=== PATIENT | female | born 1965 | race Caucasian/White ===

== ENCOUNTER 2018-07-07 16:21 | Emergency (ER) | payer OTHER ==
[~2018-07-07] VITALS: Ht 149.9 cm; Wt 73.0 kg
[2018-07-07 16:40] VITALS: BP 133/65
== END 2018-07-07 17:42 | disposition home or self-care (01) ==
LOC: ED 17:05
DX: S83.92XA Sprain of unspecified site of left knee, initial encounter (principal); S43.422A Sprain of left rotator cuff capsule, initial encounter; E11.9 Type 2 diabetes mellitus without complications; V49.49XA Driver injured in collision with other motor vehicles in traffic accident, initial encounter; Y93.89 Activity, other specified; Y92.89 Other specified places as the place of occurrence of the external cause; Y99.8 Other external cause status
CPT/HCPCS: 99284

== ENCOUNTER 2019-10-20 15:32 | Emergency (ER) | payer BC ==
[~2019-10-20] VITALS: Ht 149.9 cm; Wt 73.8 kg
[2019-10-20] MEDS ORDERED: ASPIRIN 81 MG TABLET CHEW ONE ×2 (15:41→16:57)
[2019-10-20] MEDS ORDERED: ASPIRIN 81 MG TABLET CHEW PO ONE (16:00)
[2019-10-20 16:07] LABS: BASOPHILS % (AUTO) 1 % (0-1); EOSINOPHILS # (AUTO) 0.11 x10^3/uL (0-0.4); EOSINOPHILS % (AUTO) 1 % (1-7); LYMPHOCYTES # (AUTO) 2.99 x10^3/uL (1-3.4); LYMPHOCYTES % (AUTO) 38 % (22-44); MD NO; MEAN CORPUSCULAR HGB CONC 33.7 g/dL (32.4-35.8); MEAN CORPUSCULAR VOLUME 91.9 fL (80-100); MEAN PLATELET VOLUME 8.9 fL (7.4-10.4); MONOCYTES # (AUTO) 0.37 x10^3/uL (0.2-0.8); MONOCYTES % (AUTO) 5 % (2-9); NEUTROPHILS # (AUTO) 4.25 x10^3/uL (1.8-6.8); NEUTROPHILS % (AUTO) 54 % (42-75); PLATELET COUNT 382 x10^3/uL (130-400); RED BLOOD COUNT 4.41 x10^6/uL (3.82-5.3); RED CELL DISTRIBUTION WIDTH 12.8 % (9.6-15.2)
[2019-10-20 16:16] LABS: ALBUMIN 4.1 g/dL (3.4-5.0); ANION GAP 6 mmol/L (5-15); CALCIUM 9.2 mg/dL (8.5-10.1); CHLORIDE 111 mmol/L (98-107)
[2019-10-20 16:21] LABS: TROPONIN I < 0.015 ng/mL (0.000-0.045)
--- NOTE | 2019-10-20 17:05 | NUR ---
PT WITH C/O CP INTERMITTANCE X 4 DAYS. PER PT SHE IS CP FREE CURRENTLY. PT TO ALL MONITOR EQUIPMENT. PLACED FOR RECHECK
[2019-10-20 18:33] VITALS: BP 163/83
== END 2019-10-20 18:53 | disposition home or self-care (01) ==
LOC: ED 18:00
DX: R07.89 Other chest pain (principal); I10 Essential (primary) hypertension; E11.9 Type 2 diabetes mellitus without complications; E78.00 Pure hypercholesterolemia, unspecified
CPT/HCPCS: 36415; 71045; 80048; 82040; 84484; 85025; 85379; 93005; 99284

== ENCOUNTER 2020-05-22 11:06 | Inpatient (IN) | payer BC ==
[~2020-05-22] VITALS: Ht 157.5 cm; Wt 91.0 kg
--- NOTE | 2020-05-22 12:34 | NUR ---
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
[2020-05-22] MEDS ORDERED: ONDANSETRON 2MG/ML, 2ML IVPush ONE ×2 (13:30→18:30)
[2020-05-22] MEDS ORDERED: SODIUM CHLORIDE FLUSH 10ML SYR IVF ONE (13:30)
[2020-05-22] MEDS ORDERED: SODIUM CHLORIDE 0.9% 1,000ML IVBOLUS ONE (13:30)
[2020-05-22] MEDS ORDERED: ONDANSETRON 2MG/ML, 2ML ONE ×4 (13:37→21:05)
[2020-05-22] MEDS ORDERED: HYDROmorphone 1 MG/ML, 1ML INJ ONE ×2 (13:37→15:11)
[2020-05-22 13:46] LABS: MICROSCOPIC INDICATED
[2020-05-22 13:56] LABS: BASOPHILS % (AUTO) 0 % (0-1); EOSINOPHILS # (AUTO) 0.01 x10^3/uL (0-0.4); EOSINOPHILS % (AUTO) 0 % (1-7); LYMPHOCYTES # (AUTO) 1.47 x10^3/uL (1-3.4); LYMPHOCYTES % (AUTO) 9 % (22-44); MD NO; MEAN CORPUSCULAR HEMOGLOBIN 30.5 pg (27.0-34.8); MEAN CORPUSCULAR HGB CONC 33.6 g/dL (32.4-35.8); MEAN CORPUSCULAR VOLUME 90.7 fL (80-100); MEAN PLATELET VOLUME 9.1 fL (7.4-10.4); MONOCYTES # (AUTO) 0.35 x10^3/uL (0.2-0.8); MONOCYTES % (AUTO) 2 % (2-9); NEUTROPHILS # (AUTO) 14.14 x10^3/uL (1.8-6.8); NEUTROPHILS % (AUTO) 89 % (42-75); PLATELET COUNT 378 x10^3/uL (130-400); RED BLOOD COUNT 4.47 x10^6/uL (3.82-5.3); RED CELL DISTRIBUTION WIDTH 13.3 % (9.6-15.2)
[2020-05-22 14:02] LABS: CHLORIDE 109 mmol/L (98-107)
[2020-05-22] MEDS: HYDROmorphone 2 MG/ML, 1ML IVPush PRN ×2 (14:07→15:17)
--- NOTE | 2020-05-22 14:08 | NUR ---
BREAK RN: PT AMBULATED TO BATHROOM. VS STABLE. FAMILY AT BEDSIDE. PT MEDICATED FOR PAIN 07/01. US DONE. PULSE OX ON. NO ACUTE DISTRESS NOTED. WILL CONTINUE TO MONITOR WHILE PRIMARY RN IS ON BREAK.
[2020-05-22 14:10] LABS: ALANINE AMINOTRANSFERASE 75 U/L (12-78); ALBUMIN 4.1 g/dL (3.4-5.0); ALKALINE PHOSPHATASE 146 U/L (45-117); ANION GAP 8 mmol/L (5-15); BILIRUBIN,TOTAL 0.4 mg/dL (0.2-1.0); CREATININE 0.69 mg/dL (0.55-1.02); TOTAL PROTEIN 8.2 g/dL (6.4-8.2)
--- NOTE | 2020-05-22 14:57 | NUR ---
Nicole RN note: Pt ambulatory to bathroom and back to bed without difficulty. Pt positioned for comfort in bed, denies other needs. Continuous oxygen and BP monitors reapplied, all safety measures observed.
--- NOTE | 2020-05-22 15:20 | NUR ---
PT MEDICATED FOR PAIN PER EMAR. PT STATED PAIN HAS STARTED TO COME BACK. SON AT BEDSIDE. WILL CONTINUE TO MONITOR.
--- NOTE | 2020-05-22 15:56 | NUR ---
PT RESTING CALMLY IN BED, EYES CLOSED, WITH FAMILY AT BEDSIDE. NO COMPLAINTS AT THIS TIME. PT AWAITING CT
--- NOTE | 2020-05-22 16:20 | NUR ---
PT STILL HAS NOT GONE FOR CT. CONTACTED CT, STATED TECH IS ON THE WAY TO PICK PT UP NOW.
--- NOTE | 2020-05-22 16:40 | NUR ---
PT GOING TO CT AT THIS TIME.
[2020-05-22] MEDS ORDERED: CEFTRIAXONE PMX 1GM/50ML 50 ML IVPB ONE (17:00)
[2020-05-22] MEDS ORDERED: CEFTRIAXONE PMX 1GM/50ML 50 ML ONE (17:17)
[2020-05-22] MEDS ORDERED: IBUP200T64 PO (17:43)
--- NOTE | 2020-05-22 18:08 | NUR ---
REPORT TO GRANT KINSEY.
--- NOTE | 2020-05-22 18:21 | NUR ---
late entry::PT DAUGHTER UPSET THAT THEY ARE HAVING TO WAIT IN THE ER AND FEEL THEY ARE NOT GETTING ANY ANSWERS TO WHAT IS GOING ON. PT AND DAUGHTER WERE INFORMED EARLIER THAT PT WOULD BE ADMITTED, AND ROOM WAS REQUESTED, WAS UNKNOWN WHEN ROOM WOULD BE GIVEN AT THAT TIME. PT DAUGHTER UNHAPPY WITH THIS. WAS ABLE TO RECIEVE SURGICAL PLAN FROM FLOOR NURSEDURING REPORT AND SURGICAL FLOOR'S CURRENT VISITORS POLICY. UPDATED FAMILY MEMBER AND PT WITH THIS INFO. PT DAUGHTER WANTING TO KNOW HOW LONG PT WILL BE IN THE HOSPITAL AND WHEN PT CAN EAT LAST MEAL WAS, PER DAUGHTER, AN 0800 CUP OF COFFEE. PT DAUGHTER INFORMED THAT PT IS NPO AT THIS TIME BUT DIET AND LENGTH OF STAY WILL BE DETERMINED BY THE HOSPITALIST AND SURGEON AFTER SURGERY. PT WAS ACTIVELY VOMITING, PT MEDICATED FOR VOMITING PER EMAR AND PT UNHOOKED FROM VITALS MACHINE AND ASSISTED TO BATHROOM BY HER DAUGHTER. WILL CONTINUE TO MONITOR.
[2020-05-22] MEDS: SODIUM CHLORIDE 0.9% 1,000 ML IV SCH ×2 (18:39→22:39)
--- NOTE | 2020-05-22 18:47 | NUR ---
PT CLOTHING AND JEWELRY REMOVED. OR TECH HERE TO PICK PT UP.
[2020-05-22] MEDS ORDERED: MIDAZOLAM 1 MG/ML, 2ML ONE (18:52)
[2020-05-22] MEDS ORDERED: FENTANYL PF 250 MCG/5ML ONE (18:52)
[2020-05-22] MEDS ORDERED: PHARMACY MAY ADJ FOR RENAL FX MC SCH (19:00)
[2020-05-22] MEDS ORDERED: HYDROmorphone 2 MG/ML, 1ML IV PRN (19:00)
[2020-05-22] MEDS ORDERED: morphine SULFATE 10 MG/ML, 1ML IV PRN (19:00)
[2020-05-22] MEDS ORDERED: SODIUM CHLORIDE 0.9% 1,000ML IV ONE (19:00)
[2020-05-22] MEDS ORDERED: ONDANSETRON 2MG/ML, 2ML IV PRN (19:00)
[2020-05-22] MEDS ORDERED: CEFTRIAXONE PMX 1GM/50ML 50 ML IVPB SCH (19:00)
[2020-05-22] MEDS ORDERED: DOCUSATE 100 MG CAPSULE PO PRN (19:00)
[2020-05-22] MEDS ORDERED: ZOLPIDEM 5MG TABLET PO PRN (19:00)
[2020-05-22] MEDS ORDERED: PHENYLEPHRINE 10 MG/ML ONE (19:15)
[2020-05-22] MEDS ORDERED: DEXAMETHASONE 4 MG/ML, 1ML ONE (19:15)
[2020-05-22] MEDS ORDERED: PROPOFOL 10 MG/ML, 100ML IV ONE (19:15)
[2020-05-22] MEDS ORDERED: GLYCOPYRROLATE 0.2MG/1ML, 5ML ONE (19:15)
[2020-05-22] MEDS ORDERED: NEOSTIGMINE 1 MG/ML, 10ML ONE (19:15)
[2020-05-22] MEDS ORDERED: ROCURONIUM 10 MG/ML,10ML ONE (19:15)
[2020-05-22] MEDS ORDERED: POTASSIUM CHLORIDE 20 MEQ TAB.ER.PRT PO ONE (19:30)
[2020-05-22] MEDS ORDERED: hydrALAzine 20 MG/ML, 1ML IV PRN (19:30)
[2020-05-22] MEDS ORDERED: LABETALOL 5MG/ML, 20ML IV PRN (19:30)
[2020-05-22] MEDS ORDERED: morphine SULFATE 10 MG/ML, 1ML IVPush PRN (19:30)
[2020-05-22] MEDS ORDERED: HYDROmorphone 1 MG/ML, 1ML INJ IVPush PRN (19:30)
[2020-05-22] MEDS ORDERED: OXYcodone 5 MG/5 ML ORAL.SOL UDC PO PRN (19:30)
[2020-05-22] MEDS ORDERED: PROMETHAZINE 25 MG/ML, 1ML IVPush PRN ×2 (19:30→21:30)
[2020-05-22] MEDS ORDERED: MEPERIDINE/PF 25MG/0.5ML IVPush PRN (19:30)
[2020-05-22] MEDS ORDERED: HALOPERIDOL 5 MG/ML IV PRN (19:30)
[2020-05-22] MEDS ORDERED: FENTANYL PF 100 MCG/2ML IV PRN (19:30)
[2020-05-22] MEDS ORDERED: SUGAMMADEX 200 MG/2 ML IVPush ONE (19:43)
[2020-05-22 21:24] VITALS: BP 133/81
[2020-05-22] MEDS ORDERED: ONDANSETRON 2MG/ML, 2ML IVPush PRN (21:30)
[2020-05-22] MEDS: HEPARIN 5,000 UNITS/ML, 1ML SQ SCH (22:55)
[2020-05-23 00:59] VITALS: BP 126/71
[2020-05-23] MEDS: SODIUM CHLORIDE 0.9% 1,000 ML IV SCH ×6 (02:39→20:40)
[2020-05-23] MEDS: ACETAMINOPHEN 325 MG TABLET PO PRN ×3 (03:15→14:08)
[2020-05-23 04:45] VITALS: BP 130/77
[2020-05-23 05:41] LABS: BASOPHILS # (AUTO) 0.01 x10^3/uL (0-0.1); BASOPHILS % (AUTO) 0 % (0-1); EOSINOPHILS % (AUTO) 0 % (1-7); LYMPHOCYTES # (AUTO) 1.29 x10^3/uL (1-3.4); LYMPHOCYTES % (AUTO) 9 % (22-44); MD NO; MEAN CORPUSCULAR HEMOGLOBIN 30.8 pg (27.0-34.8); MEAN CORPUSCULAR HGB CONC 33.3 g/dL (32.4-35.8); MEAN CORPUSCULAR VOLUME 92.3 fL (80-100); MEAN PLATELET VOLUME 9.4 fL (7.4-10.4); MONOCYTES # (AUTO) 0.05 x10^3/uL (0.2-0.8); MONOCYTES % (AUTO) 0 % (2-9); NEUTROPHILS # (AUTO) 12.87 x10^3/uL (1.8-6.8); NEUTROPHILS % (AUTO) 91 % (42-75); PLATELET COUNT 368 x10^3/uL (130-400); RED BLOOD COUNT 4.36 x10^6/uL (3.82-5.3); RED CELL DISTRIBUTION WIDTH 13.4 % (9.6-15.2)
[2020-05-23 05:50] LABS: ANION GAP 8 mmol/L (5-15); CALCIUM 9.6 mg/dL (8.5-10.1); CHLORIDE 107 mmol/L (98-107); CREATININE 0.72 mg/dL (0.55-1.02)
[2020-05-23] MEDS: HEPARIN 5,000 UNITS/ML, 1ML SQ SCH ×3 (06:35→23:28)
[2020-05-23 07:10] VITALS: BP 132/79
[2020-05-23] MEDS: PHENAZOPYRIDINE 200 MG TABLET PO SCH ×3 (12:10→20:27)
[2020-05-23 13:10] VITALS: BP 121/74
[2020-05-23 19:18] VITALS: BP 123/73
[2020-05-24 00:38] VITALS: BP 124/67
[2020-05-24] MEDS: SODIUM CHLORIDE 0.9% 1,000 ML IV SCH ×4 (01:11→14:39)
[2020-05-24 05:55] LABS: BASOPHILS # (AUTO) 0.03 x10^3/uL (0-0.1); BASOPHILS % (AUTO) 0 % (0-1); EOSINOPHILS % (AUTO) 0 % (1-7); LYMPHOCYTES # (AUTO) 2.99 x10^3/uL (1-3.4); LYMPHOCYTES % (AUTO) 19 % (22-44); MD NO; MEAN CORPUSCULAR HEMOGLOBIN 30.4 pg (27.0-34.8); MEAN CORPUSCULAR HGB CONC 32.4 g/dL (32.4-35.8); MEAN CORPUSCULAR VOLUME 93.7 fL (80-100); MEAN PLATELET VOLUME 8.9 fL (7.4-10.4); MONOCYTES # (AUTO) 0.64 x10^3/uL (0.2-0.8); MONOCYTES % (AUTO) 4 % (2-9); NEUTROPHILS # (AUTO) 12.42 x10^3/uL (1.8-6.8); NEUTROPHILS % (AUTO) 77 % (42-75); PLATELET COUNT 363 x10^3/uL (130-400); RED BLOOD COUNT 4.16 x10^6/uL (3.82-5.3); RED CELL DISTRIBUTION WIDTH 13.7 % (9.6-15.2)
[2020-05-24 06:01] LABS: ANION GAP 6 mmol/L (5-15); CALCIUM 9.2 mg/dL (8.5-10.1); CHLORIDE 109 mmol/L (98-107); CREATININE 0.67 mg/dL (0.55-1.02)
[2020-05-24 06:13] VITALS: BP 149/84
[2020-05-24] MEDS: HEPARIN 5,000 UNITS/ML, 1ML SQ SCH ×2 (06:52→15:00)
[2020-05-24] MEDS: ACETAMINOPHEN 325 MG TABLET PO PRN (08:27)
[2020-05-24] MEDS: PHENAZOPYRIDINE 200 MG TABLET PO SCH ×2 (08:41→16:17)
[2020-05-24 14:21] VITALS: BP 149/77
[2020-05-24] MEDS ORDERED: CEFD300C37 PO (14:28)
== END 2020-05-24 16:50 | disposition home or self-care (01) | DRG 854 ==
LOC: ED 14:24 → EDIP 17:15 → 4NE 21:22
PROVIDERS: ADMIT Internal Medicine; ATTEND Internal Medicine
PROC: 0T768DZ Dilation of Right Ureter with Intraluminal Device, Via Natural or Artificial Opening Endoscopic (ICD-10-PCS; principal; 2020-05-22 19:30)
DX: A41.51 Sepsis due to Escherichia coli [E. coli] (principal); N13.6 Pyonephrosis; E11.9 Type 2 diabetes mellitus without complications; E78.00 Pure hypercholesterolemia, unspecified; E78.5 Hyperlipidemia, unspecified; E87.6 Hypokalemia; F32.9 Major depressive disorder, single episode, unspecified; G89.29 Other chronic pain; I10 Essential (primary) hypertension; Z20.828 Contact with and (suspected) exposure to other viral communicable diseases
CPT/HCPCS: 36415; 74018; 74176; 76000; 76700; 80048; 80053; 81001; 83036; 83605; 83690; 83735; 85025; 87040; 87077; 87086; 87186; 87635; G0378; J0696; J1100; J1170; J1644; J2250; J2405; J2704; J2710; J3010; C2617; J2370; J7030